=== PATIENT | female | born 1955 | race Caucasian/White ===

== ENCOUNTER 2017-12-09 10:24 | Outpatient (CLI) | payer OTHER | END 2017-12-09 16:46 | disposition home or self-care (01) | LOC: HPC 10:24 | DX: C18.9 Malignant neoplasm of colon, unspecified (principal); C78.7 Secondary malignant neoplasm of liver and intrahepatic bile duct; I10 Essential (primary) hypertension; Z86.010 Personal history of colon polyps; Z83.3 Family history of diabetes mellitus; Z82.49 Family history of ischemic heart disease and other diseases of the circulatory system | CPT/HCPCS: Z7500 ==

== ENCOUNTER 2017-12-31 04:32 | Inpatient (IN) | payer OTHER ==
[2017-12-31] MEDS ORDERED: LIDOCAINE 1%/EPI 30 ML INJ (06:51)
[2017-12-31] MEDS ORDERED: SUGAMMADEX SODIUM 200 MG/2 ML VIAL IV (07:00)
[2017-12-31] MEDS ORDERED: ROCURONIUM 50 MG INJ ×2 (07:00→09:18)
[2017-12-31] MEDS: PIPER-TAZO 3.375 GM IV (PMX) 100 ML IVPB (07:00)
[2017-12-31] MEDS ORDERED: METOPROLOL 5 MG INJ (07:00)
[2017-12-31] MEDS ORDERED: BUPIVACAINE 0.5% (SDV) 30 ML INJ (07:13)
[2017-12-31] MEDS ORDERED: MIDAZOLAM 1 MG/ML 2 ML INJ ×2 (08:43→09:15)
[2017-12-31] MEDS ORDERED: FENTAnyl 50 MCG/ML VIAL ×2 (08:45→09:35)
[2017-12-31] MEDS ORDERED: PROPOFOL 20 ML (09:18)
[2017-12-31] MEDS ORDERED: SUCCINYLCHOLINE CHLORIDE 100 MG/5 ML SYG IV (09:18)
[2017-12-31] MEDS: BUPIVACAINE 0.25% (MPF) 30 ML INJ (09:41)
[2017-12-31] MEDS ORDERED: METOCLOPRAMIDE 10 MG INJ (10:00)
[2017-12-31] MEDS ORDERED: ONDANSETRON 4 MG INJ (10:00)
[2017-12-31] MEDS ORDERED: DEXAMETHASONE 4 MG/ML 1 ML INJ (10:01)
[2017-12-31] MEDS ORDERED: HYDROmorphONE 2 MG/ML SYG (10:07)
[2017-12-31] MEDS ORDERED: LABETALOL HCL 20MG INJ ×2 (10:12→12:38)
[2017-12-31] MEDS ORDERED: ROPIVACAINE 0.2% 20 ML VIAL (11:57)
[2017-12-31] MEDS ORDERED: morphine SULFATE/PF (10 MG/10 ML) INJ (11:57)
[2017-12-31] MEDS ORDERED: NA PHOSPHATE/BIPHOS 133 ML ENEMA PR (13:00)
[2017-12-31] MEDS ORDERED: METOCLOPRAMIDE 10 MG INJ IV (13:00)
[2017-12-31] MEDS ORDERED: DIPHENHYDRAMINE 50 MG INJ IV ×2 (13:00)
[2017-12-31] MEDS ORDERED: MEPERIDINE 25 MG INJ IV (13:00)
[2017-12-31] MEDS ORDERED: HYDROmorphONE (0.2 MG/ML) 10ML SYG IV ×3 (13:00)
[2017-12-31] MEDS ORDERED: NALOXONE (0.4 MG/ML) INJ IV (13:00)
[2017-12-31] MEDS ORDERED: MIDAZOLAM 1 MG/ML 2 ML INJ IV (13:00)
[2017-12-31] MEDS ORDERED: IPRATROPIUM (NEB) 0.5 MG/2.5 ML AMP HHN (13:00)
[2017-12-31] MEDS ORDERED: ZOLPIDEM 5 MG TAB PO (13:00)
[2017-12-31] MEDS ORDERED: HYDROCODONE/APAP (5/325) TAB PO (13:00)
[2017-12-31] MEDS ORDERED: DOCUSATE SODIUM 100 MG CAP PO (13:00)
[2017-12-31] MEDS ORDERED: LORAZEPAM 2 MG INJ IV (13:00)
[2017-12-31] MEDS ORDERED: LABETALOL HCL 20MG INJ IV (13:00)
[2017-12-31] MEDS ORDERED: HYDROmorphONE 0.5 MG/0.5 ML SYG IV ×3 (13:00)
[2017-12-31] MEDS ORDERED: FENTAnyl 50 MCG/ML VIAL IV ×2 (13:00)
[2017-12-31] MEDS ORDERED: ONDANSETRON 4 MG INJ IV (13:00)
[2017-12-31] MEDS ORDERED: HALOPERIDOL 5 MG INJ IV (13:00)
[2017-12-31] MEDS ORDERED: hydrALAzine 20 MG INJ IV (13:00)
[2017-12-31 14:31] LABS: ADD MAN DIFF? NO
[2017-12-31 14:33] LABS: ABNORMAL IP MESSAGE 1; BASOPHILS % 0.2 % (0.0-2.0); HEMATOCRIT 28.4 % (37.0-47.0); HEMOGLOBIN 9.6 g/dl (12.0-16.0); LYMPHOCYTES # 0.6 10^3/ul (0.8-2.9); MEAN CORPUSCULAR HEMOGLOBIN 33.1 pg (29.0-33.0); MEAN CORPUSCULAR HGB CONC 33.8 g/dl (32.0-37.0); MEAN CORPUSCULAR VOLUME 97.9 fl (82.0-101.0); MEAN PLATELET VOLUME 9.2 fl (7.4-10.4); MONOCYTE # 0.3 10^3/ul (0.3-0.9); MONOCYTES % 3.7 % (0.0-11.0); NEUTROPHIL # 8.3 10^3/ul (1.6-7.5); NEUTROPHILS % 89.8 % (39.0-77.0); PLATELET COUNT 163 10^3/UL (140-415); RED CELL DISTRIBUTION WIDTH 14.5 % (11.5-14.5)
[2017-12-31 14:33] LABS: WHITE BLOOD COUNT 9.3 10^3/ul (4.8-10.8)
[2017-12-31 14:34] LABS: POSITIVE DIFF @See below
[2017-12-31 14:50] LABS: PROTIME 13.3 Sec (11.9-14.9)
[2017-12-31 14:51] LABS: PARTIAL THROMBOPLASTIN TIME 29.6 Sec (25.0-35.0)
[2017-12-31 14:53] LABS: ALANINE AMINOTRANSFERASE 256 IU/L (13-69); ALBUMIN 4.5 g/dl (3.3-4.9); ALBUMIN/GLOBULIN RATIO 1.45; ALKALINE PHOSPHATASE 116 IU/L (42-121); ANION GAP 18 (8-16); ASPARTATE AMINO TRANSFERASE 226 IU/L (15-46); BLOOD UREA NITROGEN 10 mg/dl (7-20); CARBON DIOXIDE 22 mmol/L (21-31); CHLORIDE 111 mmol/L (97-110); CREATININE 0.68 mg/dl (0.44-1.00); GLUCOSE 135 mg/dl (70-220); POTASSIUM 3.9 mmol/L (3.5-5.1); SODIUM 147 mmol/L (135-144); TOTAL PROTEIN 7.6 g/dl (6.1-8.1)
[2017-12-31 14:54] LABS: MAGNESIUM 1.7 mg/dl (1.7-2.5)
[2017-12-31 14:54] LABS: PHOSPHORUS 5.1 mg/dl (2.5-4.9)
[2017-12-31] MEDS: D5W-0.45 NACL + KCL 20 MEQ 1,000 ML IV ×2 (15:06→23:32)
[2017-12-31] MEDS: HYDROmorphONE 0.2 MG/ML PCA IV (17:40)
[2017-12-31] MEDS: DOCUSATE SODIUM 100 MG CAP PO (20:15)
[2017-12-31] MEDS: ONDANSETRON 4 MG INJ IV (23:32)
[2018-01-01 04:54] LABS: ADD MAN DIFF? NO
[2018-01-01 05:01] LABS: WHITE BLOOD COUNT 11.1 10^3/ul (4.8-10.8)
[2018-01-01 05:01] LABS: BASOPHILS % 0.1 % (0.0-2.0); HEMATOCRIT 30.4 % (37.0-47.0); HEMOGLOBIN 10.4 g/dl (12.0-16.0); LYMPHOCYTES # 0.8 10^3/ul (0.8-2.9); LYMPHOCYTES % 7.1 % (15.0-51.0); MEAN CORPUSCULAR HEMOGLOBIN 32.7 pg (29.0-33.0); MEAN CORPUSCULAR HGB CONC 34.2 g/dl (32.0-37.0); MEAN CORPUSCULAR VOLUME 95.6 fl (82.0-101.0); MEAN PLATELET VOLUME 9.4 fl (7.4-10.4); MONOCYTE # 0.9 10^3/ul (0.3-0.9); MONOCYTES % 7.7 % (0.0-11.0); NEUTROPHIL # 9.4 10^3/ul (1.6-7.5); NEUTROPHILS % 84.7 % (39.0-77.0); PLATELET COUNT 202 10^3/UL (140-415); RED BLOOD COUNT 3.18 10^6/ul (4.20-5.40); RED CELL DISTRIBUTION WIDTH 13.9 % (11.5-14.5)
[2018-01-01 05:26] LABS: ALANINE AMINOTRANSFERASE 828 IU/L (13-69); ALBUMIN 4.4 g/dl (3.3-4.9); ALBUMIN/GLOBULIN RATIO 1.41; ALKALINE PHOSPHATASE 134 IU/L (42-121); ANION GAP 17 (8-16); ASPARTATE AMINO TRANSFERASE 712 IU/L (15-46); BILIRUBIN,INDIRECT 1.8 mg/dl (0-1.1); BILIRUBIN,TOTAL 1.8 mg/dl (0.2-1.3); BLOOD UREA NITROGEN 13 mg/dl (7-20); CALCIUM 9.4 mg/dl (8.4-10.2); CARBON DIOXIDE 26 mmol/L (21-31); CHLORIDE 106 mmol/L (97-110); GLUCOSE 149 mg/dl (70-220); MAGNESIUM 1.5 mg/dl (1.7-2.5); PHOSPHORUS 3.7 mg/dl (2.5-4.9); SODIUM 145 mmol/L (135-144); TOTAL PROTEIN 7.5 g/dl (6.1-8.1)
[2018-01-01 05:29] LABS: INR 1.09; PARTIAL THROMBOPLASTIN TIME 27.1 Sec (25.0-35.0); PROTIME 14.2 Sec (11.9-14.9); PT RATIO 1.1
[2018-01-01 05:32] LABS: B-TYPE NATRIURETIC PEPTIDE 440 PG/ML (0-125)
[2018-01-01 05:53] LABS: LACTIC ACID 2.2 mmol/L (0.5-2.0)
[2018-01-01] MEDS: D5W-0.45 NACL + KCL 20 MEQ 1,000 ML IV (07:46)
[2018-01-01] MEDS: FAMOTIDINE 20 MG INJ IV (08:50)
[2018-01-01] MEDS: BENAZEPRIL 10 MG TAB PO (08:50)
[2018-01-01] MEDS: DOCUSATE SODIUM 100 MG CAP PO ×2 (08:50→20:13)
[2018-01-01] MEDS: ENOXAPARIN 40 MG/0.4 ML SYG SC (08:52)
[2018-01-01] MEDS: HYDROCODONE/APAP (5/325) TAB PO (10:22)
[2018-01-01] MEDS: KETOROLAC 30 MG INJ IV ×3 (11:44→23:05)
[2018-01-01] MEDS ORDERED: ONDANSETRON 4 MG INJ IV (12:30)
[2018-01-01 12:55] LABS: LACTIC ACID 3.4 mmol/L (0.5-2.0)
[2018-01-01] MEDS: SOD CHLORIDE 0.9% 1,000 ML IV ×2 (13:06→23:30)
[2018-01-01] MEDS: MAGNESIUM SULFATE 2 GM/50 ML 50 ML IVPB (15:58)
[2018-01-01 18:52] LABS: LACTIC ACID 3.1 mmol/L (0.5-2.0)
[2018-01-01] MEDS: FAMOTIDINE 20 MG TAB PO (20:13)
[2018-01-01] MEDS: PIPER-TAZO 3.375 GM IV (PMX) 100 ML IVPB (21:14)
[2018-01-02] MEDS: SOD CHLORIDE 0.9% 1,000 ML IV (02:08)
[2018-01-02 05:18] LABS: ADD MAN DIFF? NO
[2018-01-02 05:20] LABS: BASOPHILS % 0.3 % (0.0-2.0); EOSINOPHILS # 0.1 10^3/ul (0.0-0.5); EOSINOPHILS % 0.9 % (0.0-7.0); HEMATOCRIT 28.7 % (37.0-47.0); HEMOGLOBIN 9.8 g/dl (12.0-16.0); LYMPHOCYTES % 10.4 % (15.0-51.0); MEAN CORPUSCULAR HEMOGLOBIN 33.1 pg (29.0-33.0); MEAN CORPUSCULAR HGB CONC 34.1 g/dl (32.0-37.0); MEAN PLATELET VOLUME 9.6 fl (7.4-10.4); MONOCYTE # 0.6 10^3/ul (0.3-0.9); MONOCYTES % 6.8 % (0.0-11.0); NEUTROPHIL # 7.4 10^3/ul (1.6-7.5); NEUTROPHILS % 81.2 % (39.0-77.0); PLATELET COUNT 170 10^3/UL (140-415); RED BLOOD COUNT 2.96 10^6/ul (4.20-5.40); RED CELL DISTRIBUTION WIDTH 14.4 % (11.5-14.5)
[2018-01-02 05:20] LABS: WHITE BLOOD COUNT 9.2 10^3/ul (4.8-10.8)
[2018-01-02] MEDS: KETOROLAC 30 MG INJ IV (05:22)
[2018-01-02] MEDS: PIPER-TAZO 3.375 GM IV (PMX) 100 ML IVPB (05:22)
[2018-01-02 05:39] LABS: LACTIC ACID 1.1 mmol/L (0.5-2.0)
[2018-01-02 05:43] LABS: ALANINE AMINOTRANSFERASE 870 IU/L (13-69); ALBUMIN 3.7 g/dl (3.3-4.9); ALBUMIN/GLOBULIN RATIO 1.37; ALKALINE PHOSPHATASE 168 IU/L (42-121); ANION GAP 15 (8-16); ASPARTATE AMINO TRANSFERASE 544 IU/L (15-46); BILIRUBIN,INDIRECT 1.5 mg/dl (0-1.1); BILIRUBIN,TOTAL 1.9 mg/dl (0.2-1.3); BLOOD UREA NITROGEN 12 mg/dl (7-20); CARBON DIOXIDE 28 mmol/L (21-31); CHLORIDE 106 mmol/L (97-110); CREATININE 0.68 mg/dl (0.44-1.00); GLUCOSE 116 mg/dl (70-220); MAGNESIUM 1.9 mg/dl (1.7-2.5); PHOSPHORUS 2.8 mg/dl (2.5-4.9); POTASSIUM 4.1 mmol/L (3.5-5.1); SODIUM 145 mmol/L (135-144); TOTAL PROTEIN 6.4 g/dl (6.1-8.1)
[2018-01-02 05:46] LABS: B-TYPE NATRIURETIC PEPTIDE 192 PG/ML (0-125)
[2018-01-02 05:47] LABS: INR 1.12; PROTIME 14.6 Sec (11.9-14.9); PT RATIO 1.1
[2018-01-02] MEDS: BENAZEPRIL 10 MG TAB PO (08:22)
[2018-01-02] MEDS: DOCUSATE SODIUM 100 MG CAP PO ×2 (08:22→20:12)
[2018-01-02] MEDS: ENOXAPARIN 40 MG/0.4 ML SYG SC (08:28)
[2018-01-02] MEDS: BISACODYL (EC) 5 MG TAB PO (14:12)
[2018-01-02] MEDS ORDERED: BISACODYL 10 MG SUPP PR (14:30)
[2018-01-02] MEDS ORDERED: NA PHOSPHATE/BIPHOS 133 ML ENEMA PR (14:30)
[2018-01-02] MEDS ORDERED: DOCUSATE SODIUM 100 MG CAP PO (14:30)
[2018-01-02 14:59] LABS: LACTIC ACID 1.2 mmol/L (0.5-2.0)
[2018-01-02] MEDS: BISACODYL 10 MG SUPP PR (16:30)
[2018-01-02] MEDS: FAMOTIDINE 20 MG TAB PO (20:12)
[2018-01-02] MEDS: NA PHOSPHATE/BIPHOS 133 ML ENEMA PR (22:11)
[2018-01-03 05:51] LABS: ADD MAN DIFF? NO
[2018-01-03 06:08] LABS: BASOPHIL # 0.1 10^3/ul (0.0-0.1); BASOPHILS % 0.7 % (0.0-2.0); EOSINOPHILS # 0.2 10^3/ul (0.0-0.5); EOSINOPHILS % 2.3 % (0.0-7.0); HEMATOCRIT 27.2 % (37.0-47.0); HEMOGLOBIN 9.5 g/dl (12.0-16.0); LYMPHOCYTES # 1.1 10^3/ul (0.8-2.9); MEAN CORPUSCULAR HEMOGLOBIN 33.7 pg (29.0-33.0); MEAN CORPUSCULAR HGB CONC 34.9 g/dl (32.0-37.0); MEAN CORPUSCULAR VOLUME 96.5 fl (82.0-101.0); MEAN PLATELET VOLUME 9.8 fl (7.4-10.4); MONOCYTE # 0.6 10^3/ul (0.3-0.9); NEUTROPHIL # 6.3 10^3/ul (1.6-7.5); NEUTROPHILS % 76.5 % (39.0-77.0); PLATELET COUNT 159 10^3/UL (140-415); RED BLOOD COUNT 2.82 10^6/ul (4.20-5.40); RED CELL DISTRIBUTION WIDTH 14.2 % (11.5-14.5)
[2018-01-03 06:08] LABS: WHITE BLOOD COUNT 8.3 10^3/ul (4.8-10.8)
[2018-01-03 06:12] LABS: PHOSPHORUS 3.2 mg/dl (2.5-4.9)
[2018-01-03 06:12] LABS: MAGNESIUM 1.7 mg/dl (1.7-2.5)
[2018-01-03 06:15] LABS: ALANINE AMINOTRANSFERASE 592 IU/L (13-69); ALBUMIN 3.5 g/dl (3.3-4.9); ALKALINE PHOSPHATASE 201 IU/L (42-121); ANION GAP 14 (8-16); ASPARTATE AMINO TRANSFERASE 197 IU/L (15-46); BILIRUBIN,INDIRECT 1.2 mg/dl (0-1.1); BILIRUBIN,TOTAL 1.9 mg/dl (0.2-1.3); BLOOD UREA NITROGEN 12 mg/dl (7-20); CALCIUM 8.7 mg/dl (8.4-10.2); CARBON DIOXIDE 25 mmol/L (21-31); CHLORIDE 105 mmol/L (97-110); CREATININE 0.62 mg/dl (0.44-1.00); GLUCOSE 85 mg/dl (70-220); POTASSIUM 3.3 mmol/L (3.5-5.1); SODIUM 141 mmol/L (135-144); TOTAL PROTEIN 6.4 g/dl (6.1-8.1)
[2018-01-03 06:16] LABS: INR 1.09; PROTIME 14.2 Sec (11.9-14.9); PT RATIO 1.1
[2018-01-03] MEDS ORDERED: NA PHOSPHATE/BIPHOS 133 ML ENEMA PR (08:00)
[2018-01-03] MEDS: DOCUSATE SODIUM 100 MG CAP PO ×2 (09:19→20:29)
[2018-01-03] MEDS: BENAZEPRIL 10 MG TAB PO (09:19)
[2018-01-03] MEDS: ENOXAPARIN 40 MG/0.4 ML SYG SC (09:33)
[2018-01-03] MEDS: POTASSIUM CHLORIDE (SR) 20 MEQ TAB PO (14:43)
[2018-01-03] MEDS: FAMOTIDINE 20 MG TAB PO (20:29)
[2018-01-03 22:16] LABS: ADD UMIC YES; UR ASCORBIC ACID NEGATIVE (NEGATIVE); UR BILIRUBIN (Dip) NEGATIVE (NEGATIVE); UR BLOOD (Dip) 2+ mg/dL (NEGATIVE); UR CLARITY CLEAR (CLEAR); UR COLOR YELLOW (YELLOW); UR GLUCOSE (Dip) NEGATIVE (NEGATIVE); UR KETONES (Dip) NEGATIVE (NEGATIVE); UR LEUKOCYTE ESTERASE (Dip) NEGATIVE Leu/ul (NEGATIVE); UR NITRITE (Dip) NEGATIVE (NEGATIVE); UR RBC 1 /HPF (0-5); UR SPECIFIC GRAVITY (Dip) 1.005 (1.003-1.030); UR TOTAL PROTEIN (Dip) NEGATIVE (NEGATIVE); UR UROBILINOGEN (Dip) NEGATIVE (NEGATIVE); UR WBC 1 /HPF (0-5)
[2018-01-04 05:32] LABS: ADD MAN DIFF? NO
[2018-01-04 05:34] LABS: BASOPHILS % 0.5 % (0.0-2.0); EOSINOPHILS # 0.3 10^3/ul (0.0-0.5); EOSINOPHILS % 3.4 % (0.0-7.0); HEMATOCRIT 26.1 % (37.0-47.0); LYMPHOCYTES # 1.2 10^3/ul (0.8-2.9); LYMPHOCYTES % 14.6 % (15.0-51.0); MEAN CORPUSCULAR HEMOGLOBIN 33.1 pg (29.0-33.0); MEAN CORPUSCULAR HGB CONC 34.5 g/dl (32.0-37.0); MEAN PLATELET VOLUME 9.8 fl (7.4-10.4); MONOCYTE # 0.7 10^3/ul (0.3-0.9); MONOCYTES % 8.7 % (0.0-11.0); NEUTROPHIL # 5.7 10^3/ul (1.6-7.5); NEUTROPHILS % 72.3 % (39.0-77.0); PLATELET COUNT 173 10^3/UL (140-415); RED BLOOD COUNT 2.72 10^6/ul (4.20-5.40); RED CELL DISTRIBUTION WIDTH 14.5 % (11.5-14.5)
[2018-01-04 05:34] LABS: WHITE BLOOD COUNT 7.9 10^3/ul (4.8-10.8)
[2018-01-04 06:50] LABS: ANION GAP 14 (8-16); BLOOD UREA NITROGEN 12 mg/dl (7-20); CALCIUM 8.7 mg/dl (8.4-10.2); CARBON DIOXIDE 28 mmol/L (21-31); CHLORIDE 105 mmol/L (97-110); GLUCOSE 95 mg/dl (70-220); MAGNESIUM 1.8 mg/dl (1.7-2.5); PHOSPHORUS 3.2 mg/dl (2.5-4.9); POTASSIUM 3.5 mmol/L (3.5-5.1); SODIUM 143 mmol/L (135-144)
[2018-01-04 08:03] LABS: ALANINE AMINOTRANSFERASE 463 IU/L (13-69); ALBUMIN 3.4 g/dl (3.3-4.9); ALKALINE PHOSPHATASE 237 IU/L (42-121); ASPARTATE AMINO TRANSFERASE 126 IU/L (15-46); BILIRUBIN,INDIRECT 0.8 mg/dl (0-1.1); BILIRUBIN,TOTAL 0.8 mg/dl (0.2-1.3); TOTAL PROTEIN 6.5 g/dl (6.1-8.1)
[2018-01-04] MEDS: DOCUSATE SODIUM 100 MG CAP PO (10:02)
[2018-01-04] MEDS: BISACODYL 10 MG SUPP PR (10:02)
[2018-01-04] MEDS: BENAZEPRIL 10 MG TAB PO (10:03)
[2018-01-04] MEDS: ENOXAPARIN 40 MG/0.4 ML SYG SC (10:08)
== END 2018-01-04 15:15 | disposition home or self-care (01) | DRG 406 ==
LOC: MS1 04:32 → REC 05:44 → MS1 14:27
PROC: 0FB14ZZ Excision of Right Lobe Liver, Percutaneous Endoscopic Approach (ICD-10-PCS; principal; 2017-12-31 08:00)
DX: C78.7 Secondary malignant neoplasm of liver and intrahepatic bile duct (principal); E87.2 Acidosis; E87.0 Hyperosmolality and hypernatremia; I10 Essential (primary) hypertension; K21.9 Gastro-esophageal reflux disease without esophagitis; C18.9 Malignant neoplasm of colon, unspecified; E83.42 Hypomagnesemia; Z90.49 Acquired absence of other specified parts of digestive tract; E83.39 Other disorders of phosphorus metabolism; K59.00 Constipation, unspecified; K64.0 First degree hemorrhoids; Z92.21 Personal history of antineoplastic chemotherapy
CPT/HCPCS: 71045; 80048; 80053; 80076; 81001; 83605; 83735; 83880; 84100; 85025; 85610; 85730; 86850; 86900; 86901; 86920; 87040; 87086; 88307; 88313

== ENCOUNTER 2018-01-15 10:47 | Outpatient (CLI) | payer OTHER | END 2018-01-15 15:54 | disposition home or self-care (01) | LOC: HPC 10:47 | DX: Z09 Encounter for follow-up examination after completed treatment for conditions other than malignant neoplasm (principal); R10.9 Unspecified abdominal pain; R20.0 Anesthesia of skin; Z85.038 Personal history of other malignant neoplasm of large intestine | CPT/HCPCS: Z7500 ==